=== PATIENT | male | born 1960 | race Caucasian/White ===

== ENCOUNTER 2021-01-06 09:39 | Inpatient (IN) | payer OTHER ==
[~2021-01-06] VITALS: Ht 182.9 cm; Wt 116.1 kg
[2021-01-06] MEDS ORDERED: SODIUM CHLORIDE 0.9% 1,000 ML IV ONE (10:00)
[2021-01-06 11:12] LABS: Basophils # (auto) 0.2 10 ^3/uL (0-0.2); Basophils % (auto) 1.5 % (0.0-2.0); Eosinophils # (auto) 0.4 10 ^3/uL (0-0.8); Eosinophils % (auto) 3.3 % (0.0-7.0); Hematocrit 41.3 % (41.0-53.0); Hemoglobin 14.5 g/dL (13.5-17.5); Lymphocytes # (auto) 2.6 10 ^3/uL (0.4-5.4); Lymphocytes % (auto) 24.5 % (10.0-50.0); Mean Corpuscular Hemoglobin 32.2 pg (28.0-32.0); Mean Corpuscular Hgb Conc. 35.2 g/dL (32.0-36.0); Mean Corpuscular Volume 91.4 fL (80.0-100.0); Monocytes # (auto) 0.9 10 ^3/uL (0-1.3); Monocytes % (auto) 8.2 % (0.0-12.0); Neutrophils # (auto) 6.7 10 ^3/uL (1.6-8.6); Neutrophils % (auto) 62.5 % (37.0-80.0); Nucleated Red Blood Cells % 0.1 %; Red Blood Cells 4.52 10^6/uL (4.5-5.90); Red Cell Distribution Width 13.8 % (11.8-14.3); White Blood Cell 10.7 10^3/uL (4.4-10.8)
[2021-01-06 11:26] LABS: INR 1.05 (0.9-1.15); Partial Thromboplastin Time 27.9 sec (23.0-31.2)
[2021-01-06 11:27] LABS: Albumin 3.7 g/dL (3.4-5.0); Anion Gap 8 (5-15); Blood Urea Nitrogen 7 mg/dL (7-18); Calcium 9.1 mg/dL (8.5-10.1); Carbon Dioxide 26 mmol/L (21-32); Chloride 106 mmol/L (98-107); Glucose 108 mg/dL (74-106); Potassium 3.4 mmol/L (3.5-5.1); Sodium 140 mmol/L (136-145)
[2021-01-06 11:32] LABS: Alanine Aminotransferase 26 U/L (16-61); Alkaline Phosphatase 115 U/L (45-117); Aspartate Aminotransferase 22 U/L (15-37); BUN/Creatinine Ratio 9.1; Bilirubin, Total 0.5 mg/dL (0.2-1.0); GFR African American 133 mL/min; GFR Non-African American 110 mL/min; Total Protein 7.6 g/dL (6.4-8.2)
[2021-01-06] MEDS ORDERED: ACETAMINOPHEN 500 MG TAB PO PRN (11:45)
[2021-01-06] MEDS ORDERED: NITROGLYCERIN 0.4 MG SL TAB SL PRN (11:45)
[2021-01-06] MEDS ORDERED: MORPHINE SULFATE INJECTION 2 MG/ML SYRG IV PRN ×2 (11:45)
[2021-01-06] MEDS ORDERED: ONDANSETRON HCL 4 MG/2 ML VIAL IV PRN (11:45)
[2021-01-06] MEDS ORDERED: HYDROcodone-ACET 5/325MG TAB PO PRN (11:45)
[2021-01-06] MEDS ORDERED: LABETALOL HCL 5 MG/ML 4ML SYRINGE IV PRN (12:15)
[2021-01-06] MEDS ORDERED: LIDOCAINE 2%HCL (LOCAL ANESTH.) INJ 20ML MDV ONE (13:09)
[2021-01-06] MEDS ORDERED: IODIXANOL 320MG/ML 100ML BTL IV ONE (13:09)
[2021-01-06 13:15] LABS: Urine Bacteria NONE SEEN /hpf (None Seen); Urine Blood Negative /uL (Negative); Urine Mucus MODERATE (None Seen); Urine Specific Gravity 1.012 (1.001-1.035); Urine WBC 4 /hpf (0 - 3)
[2021-01-06] MEDS ORDERED: fentaNYL CITRATE 100 MCG/2 ML VL ONE (13:16)
[2021-01-06] MEDS ORDERED: MIDAZOLAM HCL 2MG/2ML 2ml VIAL (1mg/ml) ONE (13:17)
[2021-01-06] MEDS ORDERED: SODIUM CHL 0.9% 50 ML ONE ×2 (13:59→14:11)
[2021-01-06] MEDS ORDERED: ANGIOMAX 250 MG VIAL IV ONE ×2 (13:59→14:11)
[2021-01-06] MEDS ORDERED: hydrALAZINE HCL 20 MG/ML VL ONE (13:59)
[2021-01-06] MEDS ORDERED: OPTISON 3ml Vial for INJ IV ONE (15:52)
[2021-01-06 17:00] VITALS: BP 149/74
[2021-01-06] MEDS ORDERED: ASPI1TAB20 PO (18:10)
[2021-01-06] MEDS ORDERED: IRBE300T43 PO (18:10)
[2021-01-06] MEDS ORDERED: NIFE1TAB30 PO (18:10)
[2021-01-06] MEDS ORDERED: ATOR-47 PO (18:10)
[2021-01-06 22:44] VITALS: BP 144/58
[2021-01-07 05:21] VITALS: BP 141/61
[2021-01-07 09:00] VITALS: BP 151/78
[2021-01-07] MEDS ORDERED: NIFEdipine ER 30 MG TAB PO SCH (10:00)
[2021-01-07] MEDS ORDERED: FAMOTIDINE 20 MG TAB PO SCH (10:00)
[2021-01-07] MEDS ORDERED: ASPirin 81 mg TAB PO SCH (10:00)
[2021-01-07 13:00] VITALS: BP 127/53
[2021-01-07 14:59] VITALS: BP 151/78
== END 2021-01-07 15:58 | disposition home or self-care (01) | DRG 253 ==
LOC: ER 09:39 → TELE 11:38 → TELE-WESTW 17:02
PROVIDERS: ADMIT Nurse Practitioner Acute Care; ATTEND Internal Medicine
PROC: 047K34Z Dilation of Right Femoral Artery with Drug-eluting Intraluminal Device, Percutaneous Approach (ICD-10-PCS; principal; 2021-01-06)
PROC: B4101ZZ Fluoroscopy of Abdominal Aorta using Low Osmolar Contrast (ICD-10-PCS; 2021-01-06)
DX: I70.201 Unspecified atherosclerosis of native arteries of extremities, right leg (principal); K55.1 Chronic vascular disorders of intestine; I25.10 Atherosclerotic heart disease of native coronary artery without angina pectoris; I10 Essential (primary) hypertension; E66.9 Obesity, unspecified; E78.5 Hyperlipidemia, unspecified; Z79.01 Long term (current) use of anticoagulants; Z86.73 Personal history of transient ischemic attack (TIA), and cerebral infarction without residual deficits; Z71.3 Dietary counseling and surveillance; Z68.34 Body mass index [BMI] 34.0-34.9, adult; Z88.1 Allergy status to other antibiotic agents; Z79.899 Other long term (current) drug therapy
CPT/HCPCS: 36415; 37226; 71045; 75625; 76000; 76942; 80053; 81001; 83605; 84484; 85025; 85610; 85730; 87040; 87081; 87426; 93306; 96360; 99152; 99153; G0378; J2250; J3490; Q9956; Q9967

== ENCOUNTER 2021-08-05 15:27 | Emergency (ER) | payer OTHER ==
[~2021-08-05] VITALS: Ht 182.9 cm; Wt 129.3 kg
[~2021-08-05 15:27] MED LIST: ASPI1TAB20 PO; ATOR-47 PO; IRBE300T43 PO; NIFE1TAB30 PO
[2021-08-05 16:47] LABS: Basophils # (auto) 0.1 10 ^3/uL (0-0.2); Basophils % (auto) 1.3 % (0.0-2.0); Eosinophils # (auto) 0.2 10 ^3/uL (0-0.8); Eosinophils % (auto) 2.9 % (0.0-7.0); Hematocrit 45.4 % (41.0-53.0); Hemoglobin 15.5 g/dL (13.5-17.5); Lymphocytes # (auto) 2.8 10 ^3/uL (0.4-5.4); Lymphocytes % (auto) 32.4 % (10.0-50.0); Mean Corpuscular Hemoglobin 30.6 pg (28.0-32.0); Mean Corpuscular Hgb Conc. 34.2 g/dL (32.0-36.0); Mean Corpuscular Volume 89.6 fL (80.0-100.0); Monocytes # (auto) 0.9 10 ^3/uL (0-1.3); Monocytes % (auto) 10.4 % (0.0-12.0); Neutrophils # (auto) 4.5 10 ^3/uL (1.6-8.6); Red Blood Cells 5.07 10^6/uL (4.5-5.90); White Blood Cell 8.6 10^3/uL (4.4-10.8)
[2021-08-05 17:02] LABS: Albumin 3.7 g/dL (3.4-5.0); Calcium 8.8 mg/dL (8.5-10.1); Potassium 4.1 mmol/L (3.5-5.1)
[2021-08-05 17:06] LABS: BUN/Creatinine Ratio 14.4; Bilirubin, Total 0.5 mg/dL (0.2-1.0)
[2021-08-05 23:57] VITALS: BP 162/87
== END 2021-08-05 23:59 | disposition home or self-care (01) ==
LOC: ER 15:27
DX: H53.8 Other visual disturbances (principal); I10 Essential (primary) hypertension; Z86.73 Personal history of transient ischemic attack (TIA), and cerebral infarction without residual deficits; Z79.82 Long term (current) use of aspirin; Z79.899 Other long term (current) drug therapy; Z88.1 Allergy status to other antibiotic agents
CPT/HCPCS: 36415; 70450; 80053; 85025; 93886

== ENCOUNTER 2022-11-01 12:27 | Inpatient (IN) | payer OTHER ==
[~2022-11-01] VITALS: Ht 182.9 cm; Wt 131.0 kg
[2022-11-01 14:24] LABS: Eosinophils # (auto) 0.2 10 ^3/uL (0-0.8); Mean Corpuscular Volume 90.7 fL (80.0-100.0); Red Blood Cells 5.55 10^6/uL (4.5-5.90)
[2022-11-01 14:25] LABS: Basophils # (auto) 0.2 10 ^3/uL (0-0.2); Basophils % (auto) 2.4 % (0.0-2.0); Eosinophils % (auto) 2.2 % (0.0-7.0); Hematocrit 50.3 % (41.0-53.0); Hemoglobin 17.8 g/dL (13.5-17.5); Lymphocytes # (auto) 2.4 10 ^3/uL (0.4-5.4); Lymphocytes % (auto) 30.1 % (10.0-50.0); Mean Corpuscular Hemoglobin 32.1 pg (28.0-32.0); Mean Corpuscular Hgb Conc. 35.4 g/dL (32.0-36.0); Monocytes # (auto) 0.9 10 ^3/uL (0-1.3); Monocytes % (auto) 11.3 % (0.0-12.0); Neutrophils # (auto) 4.2 10 ^3/uL (1.6-8.6); Nucleated Red Blood Cells % 0.1 %; Red Cell Distribution Width 13.3 % (11.8-14.3); White Blood Cell 7.9 10^3/uL (4.4-10.8)
[2022-11-01 14:54] LABS: Albumin 3.3 g/dL (3.4-5.0); Calcium 9.3 mg/dL (8.5-10.1); Potassium 4.1 mmol/L (3.5-5.1)
[2022-11-01 15:06] LABS: BUN/Creatinine Ratio 7.5 (10.0-20.0); Bilirubin, Total 0.5 mg/dL (0.2-1.0)
[2022-11-01] MEDS ORDERED: CLOPIDOGREL BISULFATE 75 MG TAB PO ONE (16:15)
[2022-11-01] MEDS ORDERED: ONDANSETRON HCL 4 MG/2 ML VIAL IV PRN (18:30)
[2022-11-01] MEDS ORDERED: ACETAMINOPHEN 325 MG TAB PO PRN ×2 (18:30)
[2022-11-01] MEDS ORDERED: hydrALAZINE HCL 20 MG/ML VL IV PRN (18:30)
[2022-11-01] MEDS ORDERED: PANTOPRAZOLE 40 MG/10 ML VIAL INJ IV ONE (18:30)
[2022-11-01] MEDS ORDERED: NITROGLYCERIN 0.4 MG SL TAB SL PRN (18:30)
[2022-11-01] MEDS: ATORVASTATIN 20 MG TAB PO SCH (22:48)
[2022-11-01] MEDS: NIFEdipine ER 30 MG TAB PO SCH (22:48)
[2022-11-02 06:46] LABS: Basophils # (auto) 0.1 10 ^3/uL (0-0.2); Basophils % (auto) 0.9 % (0.0-2.0); Eosinophils # (auto) 0.2 10 ^3/uL (0-0.8); Hematocrit 45.7 % (41.0-53.0); Hemoglobin 16.3 g/dL (13.5-17.5); Lymphocytes # (auto) 2.1 10 ^3/uL (0.4-5.4); Lymphocytes % (auto) 28.8 % (10.0-50.0); Mean Corpuscular Hemoglobin 32.1 pg (28.0-32.0); Mean Corpuscular Hgb Conc. 35.7 g/dL (32.0-36.0); Mean Corpuscular Volume 90.1 fL (80.0-100.0); Monocytes # (auto) 0.7 10 ^3/uL (0-1.3); Monocytes % (auto) 9.7 % (0.0-12.0); Neutrophils # (auto) 4.2 10 ^3/uL (1.6-8.6); Neutrophils % (auto) 57.6 % (37.0-80.0); Nucleated Red Blood Cells % 0.1 %; Red Blood Cells 5.07 10^6/uL (4.5-5.90); White Blood Cell 7.2 10^3/uL (4.4-10.8)
[2022-11-02 07:17] LABS: Potassium 3.8 mmol/L (3.5-5.1)
[2022-11-02 07:39] LABS: BUN/Creatinine Ratio 11.1 (10.0-20.0); Calcium 8.9 mg/dL (8.5-10.1)
[2022-11-02] MEDS: PANTOPRAZOLE 40 MG/10 ML VIAL INJ IV SCH (08:17)
[2022-11-02] MEDS: NIFEdipine ER 30 MG TAB PO SCH ×2 (08:18→21:25)
[2022-11-02] MEDS: ASPirin-EC 81 mg tab PO SCH (08:18)
[2022-11-02] MEDS ORDERED: DEXTROSE (50%) 50ML SYRG IV PRN (09:00)
[2022-11-02 09:11] LABS: Bilirubin, Total 1.1 mg/dL (0.2-1.0); Total Protein 6.9 g/dL (6.4-8.2)
[2022-11-02 09:39] LABS: INR 1.01 (0.9-1.15); Partial Thromboplastin Time 27.3 sec (24.6-33.4)
[2022-11-02] MEDS ORDERED: PATIENTS OWN MEDICATION (Atorvastatin Calcium 1 TAB) PO SCH (10:00)
[2022-11-02] MEDS ORDERED: ASPirin 81 mg TAB PO SCH (10:00)
[2022-11-02] MEDS: ACCU-CHEK COMFORT CURVE STRIP VI SCH ×3 (11:30→21:25)
[2022-11-02 12:20] VITALS: BP 150/74
[2022-11-02] MEDS: InsuLIN REG 1unit/0.01ml Soln (100units/ml) SC SCH ×3 (12:29→21:26)
[2022-11-02 13:18] LABS: Cholesterol 164 mg/dL (< 200); HDL Cholesterol 39 mg/dL (40-59); LDL Cholesterol 113 mg/dL (< 100); Triglycerides 112 mg/dL (< 150)
[2022-11-02 17:35] VITALS: BP 138/74
[2022-11-02] MEDS ORDERED: AMLO-489 PO (19:37)
[2022-11-02] MEDS ORDERED: CILO100T PO (19:37)
[2022-11-02] MEDS ORDERED: ADAL40IN2 SC (19:37)
[2022-11-02 20:00] VITALS: BP 155/75
[2022-11-02] MEDS: ATORVASTATIN 20 MG TAB PO SCH (21:19)
[2022-11-02 22:00] VITALS: BP 137/80
[2022-11-02] MEDS ORDERED: INSULIN LANTUS (GLARGINE) 1 /0.01ml (100units/ml) SC SCH (22:00)
[2022-11-02 22:27] LABS: Amphetamine Screen, Urine NEGATIVE (NEGATIVE); Barbiturate Scree,Urine NEGATIVE (NEGATIVE); Benzodiazephine Screen, Urine NEGATIVE (NEGATIVE); Cannabinoid Screen, Urine NEGATIVE (NEGATIVE); Cocaine Screen, Urine NEGATIVE (NEGATIVE); Opiate Scree,Urine NEGATIVE (NEGATIVE); Phencyclidine Screen, Urine NEGATIVE (NEGATIVE)
[2022-11-02 22:46] LABS: Urine Bacteria NONE SEEN /hpf (None Seen); Urine Blood Negative /uL (Negative); Urine Mucus FEW (None Seen); Urine Specific Gravity 1.017 (1.001-1.035); Urine WBC 1 /hpf (0 - 3)
[2022-11-02 23:34] LABS: Folate (Folic Acid) 16.73 ng/mL (5.38-24)
[2022-11-03 00:15] VITALS: BP 144/69
[2022-11-03 05:00] VITALS: BP 154/78
[2022-11-03] MEDS: ACCU-CHEK COMFORT CURVE STRIP VI SCH ×2 (06:05→11:58)
[2022-11-03] MEDS: InsuLIN REG 1unit/0.01ml Soln (100units/ml) SC SCH ×2 (06:18→11:58)
[2022-11-03 08:00] VITALS: BP 149/60
[2022-11-03 09:00] VITALS: BP 149/60
[2022-11-03] MEDS: ASPirin-EC 81 mg tab PO SCH (09:55)
[2022-11-03] MEDS: PANTOPRAZOLE 40 MG/10 ML VIAL INJ IV SCH (09:56)
[2022-11-03] MEDS ORDERED: CLOPIDOGREL BISULFATE 75 MG TAB PO SCH (10:00)
[2022-11-03] MEDS ORDERED: LISINOPRIL 10 MG TAB PO SCH (10:00)
[2022-11-03] MEDS: NIFEdipine ER 30 MG TAB PO SCH (10:02)
[2022-11-03] MEDS ORDERED: ATOR-47 PO (13:04)
[2022-11-03] MEDS ORDERED: CLOP75TA70 PO (13:04)
[2022-11-03] MEDS ORDERED: EMPA1TAB3 PO (13:04)
[2022-11-03] MEDS ORDERED: NIFE1TAB30 PO (13:04)
[2022-11-03] MEDS ORDERED: LANC-347 XX (13:04)
[2022-11-03] MEDS ORDERED: ASPI1TAB20 PO (13:04)
[2022-11-03] MEDS ORDERED: BLOO1KIT60 XX (13:04)
[2022-11-03] MEDS ORDERED: METF-372 PO (13:04)
[2022-11-03] MEDS ORDERED: IRBE300T43 PO (13:04)
[2022-11-03 13:27] VITALS: BP 156/72
[2022-11-03 13:54] VITALS: BP 149/60
== END 2022-11-03 14:06 | disposition home or self-care (01) | DRG 65 ==
LOC: ER 12:27 → TELE 18:40 → TELE-CENTR 11-02 17:27
PROVIDERS: ADMIT Nurse Practitioner Family; ATTEND Internal Medicine
DX: I63.511 Cerebral infarction due to unspecified occlusion or stenosis of right middle cerebral artery (principal); E44.1 Mild protein-calorie malnutrition; I10 Essential (primary) hypertension; E11.9 Type 2 diabetes mellitus without complications; E66.01 Morbid (severe) obesity due to excess calories; E78.5 Hyperlipidemia, unspecified; F17.210 Nicotine dependence, cigarettes, uncomplicated; I35.0 Nonrheumatic aortic (valve) stenosis; R56.9 Unspecified convulsions; Z88.0 Allergy status to penicillin; Z79.899 Other long term (current) drug therapy; Z79.82 Long term (current) use of aspirin; Z79.4 Long term (current) use of insulin; Z68.39 Body mass index [BMI] 39.0-39.9, adult; Z71.6 Tobacco abuse counseling
CPT/HCPCS: 36415; 70450; 70551; 71045; 80053; 80061; 80307; 81001; 82306; 82607; 82746; 82962; 83036; 84443; 84484; 85025; 85610; 85730; 93306; 93886; 97163; C9113; G0378; J1815; J7060